=== PATIENT | male | born 1955 | race Caucasian/White ===

== ENCOUNTER 2020-03-12 08:39 | Outpatient (CLI) | payer MEDICARE ==
[~2020-03-12 08:39] MED LIST: HYDR-3246 PO; LISI-167 PO; LUBI8CAP4 PO; METR500T PO; OXYM10TA PO; TAMS-11 PO
== END 2020-03-12 23:59 | disposition home or self-care (01) ==
LOC: STAR 08:39
PROVIDERS: ATTEND Anesthesiology
DX: Z01.812 Encounter for preprocedural laboratory examination (principal); Z01.89 Encounter for other specified special examinations; R79.1 Abnormal coagulation profile
CPT/HCPCS: 93005